=== PATIENT | female | born 1950 | race Caucasian/White ===

== ENCOUNTER 2018-02-27 13:34 | Emergency (ER) | payer OTHER ==
[~2018-02-27] VITALS: Ht 160 cm; Wt 90.5 kg
[~2018-02-27 13:34] MED LIST: ASPIR-TRIN325 M1 PO; CARDIZEM30 MG PO; COUMADIN,JANTO7.5 MG PO; LIPITOR20 MG PO; LOPRESSOR25 MG PO; Milk Of Magnesia,MOM PO; ULTRAM50 MG PO
[2018-02-27 15:02] LABS: BASOPHIL (%) 0.6 % (0-1); EOSINOPHIL (%) 2.4 % (0-5); EOSINOPHIL COUNT 0.2 K/uL (0-0.3); HEMATOCRIT 35.3 % (36.0-46.0); HEMOGLOBIN 11.7 G/DL (11.9-15.5); IMMATURE GRANULOCYTE (%) 0.2 % (0.0-0.7); LYMPHOCYTE (%) 34.4 % (15-42); LYMPHOCYTE COUNT 2.2 K/uL (1.0-2.8); MCH 31.1 PG (29.0-34.0); MCHC 33.1 G/DL (30.0-36.0); MCV 93.9 FL (83-99); MONOCYTE (%) 8.9 % (3-12); MONOCYTE COUNT 0.6 K/uL (0-0.8); NEUTROPHIL (%) 53.5 % (45-76); NEUTROPHIL COUNT 3.4 K/uL (1.8-6.4); PLATELET COUNT 189 K/uL (156-360); RBC DIS.WIDTH-CV 13.1 % (11.8-14.6); RED BLOOD COUNT 3.76 M/uL (3.80-5.20); WHITE BLOOD COUNT 6.3 K/uL (4.1-10.2)
[2018-02-27 15:12] LABS: INTER. NORMALIZED RATIO 3.4
[2018-02-27 15:14] LABS: CHLORIDE 109 mEq/L (99-109); POTASSIUM 4.1 mEq/L (3.7-5.4); SODIUM 142 mEq/L (136-147)
[2018-02-27 15:15] LABS: PTT 40.9 SEC (25-37)
[2018-02-27 15:16] LABS: GLUCOSE 99 mg/dL (70-99)
[2018-02-27 15:20] LABS: GFR ESTIMATE (CALCULATED) 58 mL/min/
[2018-02-27 15:21] LABS: UREA NITROGEN (BUN) 22 mg/dL (9-23)
[2018-02-27 17:13] VITALS: BP 144/89
== END 2018-02-27 17:13 | disposition home or self-care (01) ==
LOC: RME 13:34 → EME 13:34 → RME 17:13
PROVIDERS: Nurse Practitioner Family
DX: S61.210A Laceration without foreign body of right index finger without damage to nail, initial encounter (principal); R79.1 Abnormal coagulation profile; W26.8XXA Contact with other sharp object(s), not elsewhere classified, initial encounter; I48.91 Unspecified atrial fibrillation; Z79.01 Long term (current) use of anticoagulants; Z23 Encounter for immunization
CPT/HCPCS: 80048; 85025; 85610; 85730; 99281; 99284; S0020